=== PATIENT | male | born 1970 | race African-American/Black ===

== ENCOUNTER → 2021-09-01 | Outpatient (CLI) | payer BC ==
[2020-05-21 11:14] VITALS: BP 127/64
--- NOTE | 2021-09-01 08:50 | RAD ---
INDICATION: Reason: B/L LEG EDEMA / Spl. Instructions: / History: COMPARISON: None. TECHNIQUE: Grayscale, color and doppler ultrasound images were obtained of the bilateral lower extrem ity venous vasculature. RIGHT: No thrombus identified in the common femoral vein, femoral vein, popliteal vein or visualized calf ve ins. LEFT: No thrombus identified in the common femoral vein, femoral vein, popliteal vein or visualized calf ve ins. IMPRESSION: * No thrombus identified in deep venous system of bilateral lower extremities. Electronically signed by: Jt Nicolas MD (09/01/2021 8:47 AM) [id number]
--- NOTE | 2021-09-02 14:46 | RAD ---
Bilateral lower extremity superficial venous duplex ultrasound study without comparison for bilateral lower extremity edema. TECHNIQUE AND FINDINGS: Real-time grayscale and color and spectral Doppler evaluation of the superfic ial veins of both lower extremities is performed. On the right, the saphenofemoral junction is patent. There is normal color flow and augmentation at t his level. Proximal greater saphenous vein has a diameter of 6 mm and there is no evidence of reflux. The right lesser saphenous vein has proximal diameter of 2.5 mm and is patent, with 3.2 seconds of r eflux. Mid lesser saphenous vein has diameter 4 mm with no reflux. Distal saphenous vein has a diamet er 3 mm with no reflux. On the left, the saphenofemoral junction is widely patent and demonstrates normal augmentation. The p roximal left greater saphenous vein is a diameter of 5 mm and there is no evidence of reflux. Proxima l left lesser saphenous vein is a diameter 3 mm and also free of any significant reflux throughout. IMPRESSION: 1. Incompetence of the right lesser saphenous vein with 3.2 seconds reflux possibly. Electronically signed by: Nato Gonzales MD (09/02/2021 2:43 PM) [id number]
== END ==
LOC: US 07:53
PROVIDERS: ATTEND Nurse Practitioner Family
DX: R60.0 Localized edema (principal)
CPT/HCPCS: 93970